=== PATIENT | female | born 1950 | race Caucasian/White ===

== ENCOUNTER 2022-09-28 22:29 | Observation (INO) | payer MEDICARE, OTHER ==
--- OUTSIDE RECORDS SUMMARY | 2022-09-28 22:32 | XMS REPORT | Continuity of Care Document ---
:1950 Author Organization [facility] t Address [address] [place] [place] [address] Care Team Providers Name Role Phone Yg Harmon MD Primary Care Physician YG HARMON Attending Clinician Unavailable Problems This patient has no known problems. Allergies, Adverse Reactions, Alerts This patient has no known allergies or adverse reactions. Social History Social Habit Start Date Stop Date Quantity Comments Source Sex Assigned At [birth year] [facility] 00:00:00 00:00:00 Smoking Status Start Date Stop Date Source Tobacco smoking consumption unknown [facility] Medications This patient has no known medications. Procedures This patient has no known procedures. Plan of Care Planned Activity Planned Date Details Comments Source Future Scheduled 2022-09-28 COLONOSCOPY SCREENING [facility] Test 22:32:45 [code = COLONOSCOPY SCREENING] Future Scheduled 2022-09-28 SHINGLES VACCINES (1 [facility] Test 22:32:45 of 2) [code = SHINGLES VACCINES (1 of 2)] Future Scheduled 2022-09-28 65+ [facility]AL [facility] Test 22:32:45 VACCINE (1 - PCV) [code = 65+ PNEUMOCOCCAL VACCINE (1 - PCV)] Future Scheduled 2022-09-28 COVID-19 VACCINE (4 - [facility] Test 22:32:45 Booster for Moderna series) [code = COVID-19 VACCINE (4 - Booster for Moderna series)] Future Scheduled 2022-09-28 INFLUENZA VACCINE [facility] Test 22:32:45 [code = INFLUENZA VACCINE] Future Scheduled 2022-09-28 Hepatitis C screening [facility] Test 22:32:45 (procedure) [code = 942541956] Future Scheduled 2022-09-28 BREAST CANCER [facility] Test 22:32:45 SCREENING [code = BREAST CANCER SCREENING] Encounters Start End Encounter Admission Attending Care Care Encounter Source Date/Time Date/Time Type Type Clinicians Facility Department ID 2021-08-02 2021-08-02 Outpatient [facility] [id number] [address] 00:00:00 00:00:00 YG [address] 2021-08-02 2021-08-02 Outpatient [facility] [id number] [address] 00:00:00 00:00:00 YG [address] Results This patient has no known results.
[2022-09-28] MEDS ORDERED: RIVAROXABAN 20 MG TABLET PO ONE (22:44)
[2022-09-28] MEDS ORDERED: NITROGLYCERIN 0.4 MG/TAB SL ONE (22:46)
[2022-09-28] MEDS ORDERED: ASPIRIN 81 MG CHEWABLE TABLET ONE (22:46)
[2022-09-28] MEDS ORDERED: NA CHLORIDE 0.9% 500 ML ONE ×2 (22:46→23:05)
[2022-09-28] MEDS ORDERED: MORPHINE 4 MG/ML SYR ONE (23:05)
[2022-09-28] MEDS ORDERED: FAMOTIDINE 20 MG/2 ML VIAL IV ONE (23:05)
[2022-09-28] MEDS ORDERED: ONDANSETRON 4 MG/2 ML VIAL ONE (23:05)
[2022-09-28 23:07] LABS: Hematocrit 40.9 % (36.0-45.0); Lymphocytes % 35.8 % (15.3-44.8); MCV 96.1 fL (80-100); MPV 8.6 fL (7.6-11.3); RBC Red Blood Cell Count 4.26 M/uL (3.86-4.86)
[2022-09-28 23:08] LABS: Protime INR 0.98
[2022-09-28 23:50] LABS: ALT/SGPT 26 U/L (13-56); AST/SGOT 14 U/L (15-37); Albumin 3.4 g/dL (3.4-5.0); Alkaline Phosphatase 81 U/L (45-117); BUN Blood Urea Nitrogen 23 mg/dL (7-18); Bicarbonate 28 mmol/L (21-32); Bilirubin Total 0.3 mg/dL (0.2-1.0); Glomerular Filtration Rate 83 ml/min (=/>90); Glucose Level 124 mg/dL (74-106); Lipase 14453 U/L (73-393); Magnesium 2.4 mg/dL (1.6-2.4); NT PRO-BNP 27 pg/mL (<125); Potassium 3.6 mmol/L (3.5-5.1); Protein, Total 7.1 g/dL (6.4-8.2); Sodium Level 144 mmol/L (136-145); Troponin High Sensitivity 4.3 pg/mL (<58.9)
[2022-09-28 23:51] LABS: Bilirubin Direct < 0.1 mg/dL (0-0.2)
[2022-09-28 23:53] LABS: SARS-CoV-2 Antigen Rapid Res Negative (Negative)
[2022-09-29] MEDS ORDERED: NA CHLORIDE 0.9% 1,000 ML ONE (01:13)
--- NOTE | 2022-09-29 01:50 | EDPHYS ---
Physician Documentation [facility] Name: Cinthia Grant Age: 72 yrs Sex: Female : 1950 Arrival Date: 09/28/2022 Time: 22:30 Bed 7 Private MD: ED Physician Abraham Jade HPI: 09/28 22:40 This 72 yrs old Female presents to ER via Wheelchair with complaints of Chest Pain. cp 22:40 The patient or guardian reports chest pain that is located primarily in the anterior cp chest wall, left. 22:40 Onset: suddenly, today. Associated signs and symptoms: Pertinent positives: nausea, mid cp back pain, Pertinent negatives: cough, palpitations, syncope, vomiting. The chest pain is described as constant. Duration: The patient or guardian reports a single episode, that is still ongoing, and worsening. Historical: - Allergies: 22:58 No Known Allergies; aa9 - PMHx: 22:58 Hypertensive disorder; Hypercholesterolemia; aa9 - PSHx: 22:58 femur sx; aa9 - Immunization history:: Client reports receiving the 2nd dose of the Covid vaccine. - Social history:: Smoking status: Patient denies any tobacco usage or history of. ROS: 22:45 Constitutional: Negative for body aches, chills, fever, poor PO intake. cp 22:45 Eyes: Negative for injury, pain, redness, and discharge. cp 22:45 Neck: Negative for pain with movement, pain at rest, stiffness. 22:45 Cardiovascular: Positive for radiating pain to below left breast, Negative for edema, palpitations. 22:45 Respiratory: Negative for cough, shortness of breath, wheezing. 22:45 Abdomen/GI: Negative for vomiting, diarrhea, constipation. 22:45 Back: Positive for pain at rest, of the mid back. 22:45 Neuro: Negative for altered mental status, dizziness, headache, syncope, weakness. 22:45 All other systems are negative. cp Exam: 22:42 ECG was reviewed by the Attending Physician. cp 22:50 Constitutional: The patient appears alert, awake, non-diaphoretic, non-toxic, well cp developed, well nourished, in obvious pain, uncomfortable. 22:50 Head/Face: Normocephalic, atraumatic. cp 22:50 Eyes: Periorbital structures: appear normal, Conjunctiva: normal, no exudate, no injection, Sclera: no appreciated abnormality, Lids and lashes: appear normal, bilaterally. 22:50 ENT: External ear(s): are unremarkable, Nose: is normal, Mouth: Lips: moist, Oral mucosa: pink and intact, moist, Posterior pharynx: Airway: no evidence of obstruction, patent. 22:50 Neck: ROM/movement: is normal, is supple, without pain, no range of motions limitations, no meningismus. 22:50 Chest/axilla: Inspection: normal. 22:50 Cardiovascular: Rate: normal, Rhythm: regular, Edema: is not appreciated, JVD: is not appreciated. 22:50 Respiratory: the patient does not display signs of respiratory distress, Respirations: labored breathing, is not present, shallow respirations, that is mild, Breath sounds: are clear throughout, no decreased breath sounds, no stridor, no wheezing. 22:50 Abdomen/GI: Inspection: obese Bowel sounds: active, all quadrants, Palpation: soft, in all quadrants, mild abdominal tenderness, in the epigastric area. 22:50 Back: pain, that is severe, of the mid back area, ROM is painful, with all movement. 22:50 Skin: no rash present. 22:50 Neuro: Orientation: to person, place \T\ time. Mentation: is normal, Motor: moves all fours, strength is normal, Sensation: is normal. Vital Signs: 22:56 BP 138 / 101; Pulse 67; Resp 18 S; Temp 97(O); Pulse Ox 95% on R/A; Weight 77.11 kg aa9 (R); Height 5 ft. 2 in. (157.48 cm) (R); Pain 10/10; 23:45 BP 136 / 75; Pulse 87; Resp 19 S; Pulse Ox 95% on R/A; aa9 /16 01:16 BP 129 / 61; Pulse 106; Resp 19 S; Pulse Ox 94% on R/A; aa9 05:46 BP 147 / 83; Pulse 104; Resp 16; Pulse Ox 95% on R/A; kl 07:59 BP 131 / 76; Pulse 96; Resp 18; Pulse Ox 96% on R/A; ld1 09:58 BP 136 / 82; Pulse 95; Resp 18; Pulse Ox 99% on R/A; Pain 2/10; ld1 09/28 22:56 Body Mass Index 31.09 (77.11 kg, 157.48 cm) aa9 MDM: 09/28 22:36 Patient medically screened. cp 23:00 Differential diagnosis: acute myocardial infarction, acute pericarditis, anxiety, cp cholecystitis, Cholelithiasis costochondritis, esophagitis, gastritis, pancreatitis, pericarditis, pneumonia, pneumothorax, pulmonary embolus, stable angina, thoracic aortic disection, unstable angina. 09/29 02:15 Data reviewed: vital signs. ED course: Dr. Gtz indicated based on preliminary data, kdr patient could stay. Dr. Brown wanted MRCP before accepting patient. Will get MRCP at 7:00 then dispo. 09:13 Consideration of Admission/Observation Patient was admitted/placed on observation. rt Management of patient was discussed with the following: Primary Care Provider: Faustino, will admit pt. I considered the following discharge prescriptions or medication management in the emergency department Medications were administered in the Emergency Department. See MAR. Response to treatment: the patient's symptoms have markedly improved after treatment. 09/28 22:35 Order name: Basic Metabolic Panel; Complete Time: 00:04 cp 09/29 00:04 Interpretation: Normal except: CL 109; GLUC 124; BUN 23; GFR 83. cp 09/28 22:35 Order name: CBC with Diff; Complete Time: 23:37 cp 09/29 00:06 Interpretation: Reviewed. 09/28 22:35 Order name: LFT's; Complete Time: 00:04 cp 09/29 00:05 Interpretation: Normal except: AST 14; GLOB 3.7; A/G 0.9. cp 09/28 22:35 Order name: Magnesium; Complete Time: 00:04 cp 09/28 22:35 Order name: NT PRO-BNP; Complete Time: 00:04 cp 09/28 22:35 Order name: PT-INR; Complete Time: 23:37 cp 09/28 22:35 Order name: Troponin HS; Complete Time: 00:04 cp 09/28 22:35 Order name: Lipase; Complete Time: 00:04 cp 09/29 00:04 Interpretation: Abnormal: LIP [id number]. cp 09/28 22:36 Order name: SARS RAPID; Complete Time: 00:04 cp 09/29 00:05 Order name: Lactate w/ 2H reflex if indic. cp 09/29 00:05 Order name: Blood Culture Adult (2) cp 09/29 00:07 Order name: ETOH Level; Complete Time: 01:41 cp 09/29 00:07 Order name: Urine Microscopic Only cp 09/29 02:33 Order name: Urine Dipstick-Ancillary; Complete Time: 07:14 EDMS 09/28 22:35 Order name: XRAY Chest (1 view); Complete Time: 05:18 cp 09/28 23:25 Order name: US Abdomen Limited: gallbladder; Complete Time: 05:18 cp 09/28 23:50 Order name: CT Aorta for Dissection cp 09/28 23:54 Order name: Angio Aorta For Dissection; Complete Time: 05:18 EDMS 09/29 01:58 Order name: Cholangiogram; Complete Time: 09:08 EDMS 09/28 22:35 Order name: EKG; Complete Time: 22:36 cp 09/28 22:35 Order name: Cardiac monitoring; Complete Time: 22:51 cp 09/28 22:35 Order name: EKG - Nurse/Tech; Complete Time: 22:51 cp 09/28 22:35 Order name: IV Saline Lock; Complete Time: 22:51 cp 09/28 22:35 Order name: Labs collected and sent; Complete Time: 22:51 cp 09/28 22:35 Order name: O2 Per Protocol; Complete Time: 22:51 cp 09/28 22:35 Order name: O2 Sat Monitoring; Complete Time: 22:51 cp 09/29 00:07 Order name: Urine Dipstick-Ancillary (obtain specimen); Complete Time: 05:40 cp EC/15 22:42 Rate is 75 beats/min. Rhythm is regular. MN interval is normal. QRS interval is normal. cp QT interval is normal. T waves are Inverted in lead aVR. Interpreted by me. Reviewed by me. Administered Medications: 22:45 Drug: Nitroglycerin 0.4 mg Route: Sublingual; aa9 22:50 Drug: Aspirin Chewable Tablet 324 mg Route: PO; aa9 22:51 Drug: NS 0.9% 500 ml Route: IV; Rate: 250 ml/hr; Site: left forearm; aa9 09/29 00:37 Follow up: Response: No adverse reaction; IV Status: Completed infusion; IV Intake: aa9 500ml 09/28 22:55 Drug: Nitroglycerin 0.4 mg Route: Sublingual; aa9 23:00 Drug: Pepcid (famotidine) 20 mg Route: IVP; Site: left forearm; kl 23:18 Follow up: Response: No adverse reaction kl 23:04 Drug: Zofran (Ondansetron) 4 mg Route: IVP; Site: left forearm; kl 23:18 Follow up: Response: No adverse reaction; Marked relief of symptoms kl 23:09 Drug: morphine 4 mg Route: IVP; Infused Over: 4 mins; Site: left forearm; kl 23:18 Follow up: Response: Adverse reaction, Physician notified; Marked relief of symptoms kl 09/29 01:15 Drug: NS 0.9% 1000 ml Route: IV; Rate: 100 ml/hr; Site: left forearm; aa9 05:22 Drug: morphine 4 mg Route: IVP; Infused Over: 4 mins; Site: right forearm; aa9 05:22 Drug: Zofran (Ondansetron) 4 mg Route: IVP; Site: left forearm; aa9 05:23 Not Given (Duplicate Order): morphine 4 mg IVP once over 4 mins aa9 05:23 Not Given (Duplicate Order): Zofran (Ondansetron) 4 mg IVP once; over 2 minutes aa9 07:59 Drug: Ativan (LORazepam) 1 mg Route: IVP; Site: left wrist; ld1 08:30 Follow up: Response: No adverse reaction; Anxiety decreased ld1 Disposition: 02:00 Co-signature as Attending Physician, Sammy Chong MD I agree with the assessment and kdr plan of care. Disposition Summary: 09/29/22 09:10 Hospitalization Ordered Hospitalization Status: Inpatient Admission(09/29/22 09:10) rt Provider: Yg Harmon(09/29/22 09:10) rt [facility]09[facility] 09:10) rt Condition: Fair(09/29/22 09:10) rt Problem: new(09/29/22 09:10) rt Symptoms: have improved(09/29/22 09:10) rt Bed/Room Type: Standard(09/29/22 09:10) rt Room Assignment: 430(09/29/22 09:23) dw Diagnosis - Acute Pancreatitis rt Forms: - Medication Reconciliation Form rt - SBAR form rt Signatures: Dispatcher [employer] EDKassy Lopez, RN Kym Austin RN RN dw Rittger, Kevin, MD MD kdr Filipe Dougherty PA PA cp Dibbern, Lauren, RN RN ld1 Bebe Sommers RN RN aa9 Brown, Sophia, PA-C PA-Doe sb4 Abraham Jade MD MD rt Corrections: (The following items were deleted from the chart) 02:14 01:50 Inpatient Admission kdr kdr 02:14 01:50 Yg Harmon kdr kdr 02:14 01:50 Telemetry/MedSurg (Inpatient) kdr kdr 02:14 01:50 Fair kdr kdr 02:14 01:50 new kdr kdr 02:14 01:50 have improved kdr kdr 02:14 01:50 Standard kdr kdr 02:14 01:50 kdr kdr 02:14 01:50 Upper abdominal pain, unspecified kdr kdr 02:14 01:50 Other chronic pancreatitis kdr kdr 09: 09:10 rt dw
--- NOTE | 2022-09-29 01:50 | ER ---
Nurse's Notes [facility] Name: Cinthia Grant Age: 72 yrs Sex: Female : 1950 Arrival Date: 09/28/2022 Time: 22:30 Bed 7 Private MD: Diagnosis: Acute Pancreatitis Presentation: 09/28 22:56 Chief complaint: Patient states: I was sitting on the couch, then I had a sudden chest aa9 pain like pressure started about an hour ago. Coronavirus screen: Vaccine status: Patient reports receiving the 2nd dose of the covid vaccine. Ebola Screen: No symptoms or risks identified at this time. Initial Sepsis Screen: Does the patient meet any 2 criteria? Yes Does the patient have a suspected source of infection? No. Patient's initial sepsis screen is negative. Risk Assessment: Do you want to hurt yourself or someone else? Patient reports no desire to harm self or others. Onset of symptoms was September 28, 2022 at 22:58. 22:56 Method Of Arrival: Wheelchair aa9 22:56 Acuity: SALONI 3 aa9 Triage Assessment: 22:59 General: Appears uncomfortable, obese, Behavior is cooperative, anxious. Pain: aa9 Complains of pain in chest Pain currently is 10 out of 10 on a pain scale. Quality of pain is described as pressure, Noted to be crying, moaning, restless. Neuro: Level of Consciousness is awake, alert, obeys commands, Oriented to person, place, time, situation. Cardiovascular: Patient's skin is warm and dry. Rhythm is regular. Respiratory: Airway is patent Respiratory effort is even, unlabored. GI: Abdomen is obese. : No signs and/or symptoms were reported regarding the genitourinary system. Derm: Skin is intact, with poor turgor. Musculoskeletal: No signs and/or symptoms reported regarding the musculoskeletal system. Historical: - Allergies: 22:58 No Known Allergies; aa9 - PMHx: 22:58 Hypertensive disorder; Hypercholesterolemia; aa9 - PSHx: 22:58 femur sx; aa9 - Immunization history:: Client reports receiving the 2nd dose of the Covid vaccine. - Social history:: Smoking status: Patient denies any tobacco usage or history of. Screenin:00 [facility] ED Fall Risk Assessment (Adult) History of falling in the last 3 months, aa9 including since admission No falls in past 3 months (0 pts) Confusion or Disorientation No (0 pts) Intoxicated or Sedated No (0 pts) Impaired Gait No (0 pts) Mobility Assist Device Used No (0 pt) Altered Elimination No (0 pt) Score/Fall Risk Level 0 - 2 = Low Risk. Abuse screen: Denies threats or abuse. Denies injuries from another. Nutritional screening: No deficits noted. Tuberculosis screening: No symptoms or risk factors identified. Assessment: 23:02 Reassessment: Pt c/o pain after nitro sublingual administration, Ladonna MCINTOSH notified. aa9 23:02 GI: Pt is actively vomiting. aa9 09/29 01:16 Reassessment: Patient appears in no apparent distress at this time. Patient and/or aa9 family updated on plan of care and expected duration. Pain level reassessed. Patient is alert, oriented x 3, equal unlabored respirations, skin warm/dry/pink. Pain: Denies pain. 02:00 Reassessment: Patient appears in no apparent distress at this time. Patient and/or kl family updated on plan of care and expected duration. Pain level reassessed. 05:00 Pain: Complains of pain in diaphragm Pain currently is 4 out of 10 on a pain scale. aa9 Quality of pain is described as burning, Pain began gradually. 05:00 Reassessment: notified Dr Chong. aa9 05:00 Pain: Pain radiates to left subscapular area. aa9 05:47 Reassessment: Patient appears in no apparent distress at this time. Patient and/or aa9 family updated on plan of care and expected duration. Pain level reassessed. Patient is alert, oriented x 3, equal unlabored respirations, skin warm/dry/pink. 08:00 Reassessment: Pt reporting anxiety/claustrophobia for imaging. Notified ERP - See NOV ld1 for order.s. 09:58 Reassessment: Patient appears in no apparent distress at this time. Patient and/or ld1 family updated on plan of care and expected duration. Pain level reassessed. Patient is alert, oriented x 3, equal unlabored respirations, skin warm/dry/pink. Vital Signs: 09/28 22:56 BP 138 / 101; Pulse 67; Resp 18 S; Temp 97(O); Pulse Ox 95% on R/A; Weight 77.11 kg aa9 (R); Height 5 ft. 2 in. (157.48 cm) (R); Pain 10/10; 23:45 BP 136 / 75; Pulse 87; Resp 19 S; Pulse Ox 95% on R/A; aa9 09/29 01:16 BP 129 / 61; Pulse 106; Resp 19 S; Pulse Ox 94% on R/A; aa9 05:46 BP 147 / 83; Pulse 104; Resp 16; Pulse Ox 95% on R/A; kl 07:59 BP 131 / 76; Pulse 96; Resp 18; Pulse Ox 96% on R/A; ld1 09:58 BP 136 / 82; Pulse 95; Resp 18; Pulse Ox 99% on R/A; Pain 2/10; ld1 09/28 22:56 Body Mass Index 31.09 (77.11 kg, 157.48 cm) aa9 ED Course: 09/28 22:30 Patient arrived in ED. ag3 22:34 Filipe Dougherty PA is PHCP. cp 22:34 Sammy Chong MD is Attending Physician. cp 22:55 XRAY Chest (1 view) In Process Unspecified. EDMS 22:58 Triage completed. aa9 23:01 Patient has correct armband on for positive identification. Placed in gown. Bed in low aa9 position. Call light in reach. Side rails up X2. Adult w/ patient. Client placed on continuous cardiac and pulse oximetry monitoring. NIBP monitoring applied. 23:18 SARS RAPID Sent. kl 23:51 Warm blanket given. aa9 09/29 00:01 US Abdomen Limited: gallbladder In Process Unspecified. EDMS 00:37 ETOH Level Sent. aa9 00:40 Angio Aorta For Dissection In Process Unspecified. EDMS 01:49 Yg Harmon MD is Hospitalizing Provider. kdr 03:00 No apparent distress. Resting quietly. Appears to be sleeping. kl 04:32 No apparent distress. Resting quietly. Appears to be sleeping. kl 06:04 Arm band placed on. aa9 06:04 No provider procedures requiring assistance completed. Patient maintains SpO2 aa9 saturation greater than 95% on room air. 07:05 Attending Physician role handed off by Sammy Chong MD rt 07:05 Abraham Jade MD is Attending Physician. rt 08:39 Cholangiogram In Process Unspecified. EDMS 09:09 Yg Harmon MD is Hospitalizing Provider. rt 09:58 Patient admitted, IV remains in place. ld1 Administered Medications: 09/28 22:45 Drug: Nitroglycerin 0.4 mg Route: Sublingual; aa9 22:50 Drug: Aspirin Chewable Tablet 324 mg Route: PO; aa9 22:51 Drug: NS 0.9% 500 ml Route: IV; Rate: 250 ml/hr; Site: left forearm; aa9 09/29 00:37 Follow up: Response: No adverse reaction; IV Status: Completed infusion; IV Intake: aa9 500ml 09/28 22:55 Drug: Nitroglycerin 0.4 mg Route: Sublingual; aa9 23:00 Drug: Pepcid (famotidine) 20 mg Route: IVP; Site: left forearm; kl 23:18 Follow up: Response: No adverse reaction kl 23:04 Drug: Zofran (Ondansetron) 4 mg Route: IVP; Site: left forearm; kl 23:18 Follow up: Response: No adverse reaction; Marked relief of symptoms kl 23:09 Drug: morphine 4 mg Route: IVP; Infused Over: 4 mins; Site: left forearm; kl 23:18 Follow up: Response: Adverse reaction, Physician notified; Marked relief of symptoms kl 09/29 01:15 Drug: NS 0.9% 1000 ml Route: IV; Rate: 100 ml/hr; Site: left forearm; aa9 05:22 Drug: morphine 4 mg Route: IVP; Infused Over: 4 mins; Site: right forearm; aa9 05:22 Drug: Zofran (Ondansetron) 4 mg Route: IVP; Site: left forearm; aa9 05:23 Not Given (Duplicate Order): morphine 4 mg IVP once over 4 mins aa9 05:23 Not Given (Duplicate Order): Zofran (Ondansetron) 4 mg IVP once; over 2 minutes aa9 07:59 Drug: Ativan (LORazepam) 1 mg Route: IVP; Site: left wrist; ld1 08:30 Follow up: Response: No adverse reaction; Anxiety decreased ld1 Medication: 06:03 VIS not applicable for this client. aa9 Intake: 00:37 IV: 500ml; Total: 500ml. aa9 Outcome: 01:50 Decision to Hospitalize by Provider. kdr 09:10 Decision to Hospitalize by Provider. rt 09:57 Admitted to Med/surg accompanied by tech, via wheelchair, room 430, with chart, Report ld1 called to DILSHAD Ribeiro 09:57 Condition: stable 09:57 Instructed on the need for admit. 10:26 Patient left the ED. vg1 Signatures: Dispatcher [employer] EDKassy Lopez RN Sammy Gorman MD MD kdr Filipe Dougherty PA PA Kirsten Arshad ag3 Adia Zhou RN RN vg1 Nan Gurrola RN RN ld1 Bebe Sommers RN RN aa9 Abraham Jade MD MD rt Corrections: (The following items were deleted from the chart) 06:04 06:04 Pain: Pain radiates to left subscapular area aa9 aa9
[2022-09-29 02:33] LABS: Urine Blood Negative (Negative); Urine Glucose Negative (Negative); Urine Protein Negative (Negative); Urine pH 5.5 (5.0-7.0)
[2022-09-29] MEDS ORDERED: ONDANSETRON 4 MG/2 ML VIAL ONE (05:16)
[2022-09-29] MEDS ORDERED: MORPHINE 4 MG/ML SYR ONE (05:16)
[2022-09-29] MEDS ORDERED: LORazepam 2 MG/ML VIAL ONE (08:00)
--- NOTE | 2022-09-29 09:03 | RAD REPORT ---
EXAM DESCRIPTION: MRI - Cholangiogram - 09/29/2022 8:41 am CLINICAL HISTORY: pancreatitis COMPARISON: Angio Aorta For Dissection dated 09/29/2022 FINDINGS: Three-dimensional MRCP was performed using maximum intensity projection reconstruction on the same work station. No intrahepatic biliary tree dilatation is seen. The common bile duct is normal caliber without evide nce of retained stone, stricture or mass. The pancreatic duct is not pathologically dilated. The gallbladder is unremarkable. Fluid present at the tail the pancreas, around the spleen, extending into the retroperitoneum. No flu id collection identified. Probable renal sinus cysts. Intensely T2 hyperintense lesion in the hepatic dome measuring 7 millimeters and a second lesion that is essentially punctate noted which are almost certainly benign. No suspicious liver lesions identified. Likely dependent atelectasis. IMPRESSION: Inflammatory changes at the tail of the pancreas likely reflecting acute pancreatitis. N o pancreatic ductal dilatation. Negative for biliary ductal dilatation or choledocholithiasis.
[2022-09-29 10:37] VITALS: O2SAT 99
[2022-09-29 11:06] VITALS: BMI 31.1
[2022-09-29] MEDS ORDERED: SODIUM CHLORIDE 0.9% 10ML INJ IV PRN (11:47)
[2022-09-29] MEDS ORDERED: HYDROMORPHONE HCL 1 MG/ML INJ IV PRN (11:48)
[2022-09-29] MEDS ORDERED: ONDANSETRON 4 MG/2 ML VIAL IV PRN (11:49)
[2022-09-29] MEDS: Ringers Lactate 1,000 ML IV SCH ×3 (12:00→23:20)
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
--- NOTE | 2022-09-29 13:26 | RAD REPORT ---
EXAM DESCRIPTION: RAD - Chest Single View - 09/28/2022 10:53 pm CLINICAL HISTORY: The patient is 72 years old and is Female; CHEST PAIN TECHNIQUE: Frontal view of the chest. COMPARISON: No relevant prior studies available. FINDINGS: LUNGS: Unremarkable. No consolidation. PLEURAL SPACE: Unremarkable. No pneumothorax. HEART: Unremarkable. No cardiomegaly. MEDIASTINUM: Unremarkable. BONES/JOINTS: Mild degenerative change of the bones is noted. UPPER ABDOMEN: Unremarkable as visualized. IMPRESSION: No acute cardiopulmonary process. Electronically signed by: Carolyn Fitch MD 09/28/2022 11:46 PM TOOL AND PRODUCTION PLANNER Due to temporary technical issues with the PACS/Fluency reporting system, reports are being signed by the in house radiologists without review as a courtesy to insure prompt reporting. The interpreting radiologist is fully responsible for the content of the report.
--- NOTE | 2022-09-29 13:46 | RAD REPORT ---
EXAM DESCRIPTION: US - Abdomen Exam Limited - 09/28/2022 11:59 pm CLINICAL HISTORY: Back pain TECHNIQUE: Real-time ultrasound of the right upper quadrant with image documentation. COMPARISON: No relevant prior studies available. FINDINGS: Gallbladder: Tiny gallstones and/or layering sludge. No gallbladder wall thickening or pericholecystic fluid. Common bile duct: Unremarkable as visualized. No stones. No dilation. IMPRESSION: Cholelithiasis and/or sludge. No secondary signs to suggest acute cholecystitis. Electronically signed by: Jah Harper MD 09/29/2022 12:14 AM GROUP SALES REPRESENTATIVE Due to temporary technical issues with the PACS/Fluency reporting system, reports are being signed by the in house radiologists without review as a courtesy to insure prompt reporting. The interpreting radiologist is fully responsible for the content of the report.
--- NOTE | 2022-09-29 14:16 | RAD REPORT ---
EXAM DESCRIPTION: CT - Angio Aorta For Dissection - 09/29/2022 7:00 am CLINICAL HISTORY: The patient is 72 years old and is Female; chest pain, back pain TECHNIQUE: Axial computed tomographic angiography images of the chest, abdomen and pelvis with intra venous contrast. Sagittal and coronal reformatted images were created and reviewed. This CT exam was performed using one or more of the following dose reduction techniques: automated exposure cont rol, adjustment of the mA and/or kV according to patient size, and/or use of iterative reconstruction technique. MIP reconstructed images were created and reviewed. COMPARISON: No relevant prior studies available. FINDINGS: VASCULATURE: Aorta: Scattered atherosclerotic vascular calcifications. No aortic aneurysm. No dissection. Pulmonary arteries: Unremarkable as visualized. No pulmonary embolism is identified. Great vessels of aortic arch: No acute findings. No dissection. No arterial occlusion or sig nificant stenosis. Celiac trunk and mesenteric arteries: No acute findings. No occlusion or significant stenosis. Renal arteries: No acute findings. No occlusion or significant stenosis. Iliac arteries: No acute findings. No occlusion or significant stenosis. CHEST: Lungs: Unremarkable. No mass. No consolidation. Pleural space: Unremarkable. No significant effusion. No pneumothorax. Heart: Unremarkable. No cardiomegaly. No significant pericardial effusion. ABDOMEN: Liver: There are a few subcentimeter low-density lesions in the liver which are too small to ful ly characterize but may represent cysts. Gallbladder and bile ducts: Unremarkable. No calcified stones. No ductal dilation. Pancreas: Fat stranding around the pancreatic body/tail suggestive of acute pancreatitis. No ductal dilation. Spleen: Unremarkable. No splenomegaly. Adrenals: Unremarkable. No mass. Kidneys and ureters: Suggestion of some simple renal sinus cysts bilaterally. ACR White Paper gu idelines (Silvia, et al. JACR 2018; 15(2):264-273) suggest no follow-up is necessary. No hydronephrosis. No solid mass. Stomach and bowel: Unremarkable. No obstruction. No mucosal thickening. PELVIS: Appendix: No findings to suggest acute appendicitis. Bladder: Unremarkable. No mass. Reproductive: Unremarkable as visualized. CHEST, ABDOMEN and PELVIS: Intraperitoneal space: Unremarkable. No significant fluid collection. No free air. Bones/joints: Partially visualized intramedullary tierra in the left femur. No acute fracture. No dislocation. Soft tissues: Unremarkable. Lymph nodes: Unremarkable. No enlarged lymph nodes. Other findings: Disc space narrowing with degenerative endplate changes in the spine. IMPRESSION: Fat stranding around the pancreatic body/tail suggestive of acute pancreatitis. Electronically signed by: Patrick Nunez MD 09/29/2022 1:16 AM CUSTOMER SERVICE SPECIALIST Due to temporary technical issues with the PACS/Fluency reporting system, reports are being signed by the in house radiologists without review as a courtesy to insure prompt reporting. The interpreting radiologist is fully responsible for the content of the report.
--- NOTE | 2022-09-29 17:32 | EKG ---
Test Date: 2022-09-28 Test Time: 22:33:44 Planer Setup Operator: JOAQUINA MEASUREMENT RESULTS: Intervals: Rate: 75 GA: 162 QRSD: 76 QT: 410 QTc: 457 [place]: P: 13 GA: 162 QRS: 22 T: 42 INTERPRETIVE STATEMENTS: Normal sinus rhythm Normal ECG Compared to ECG 08/01/1997 16:52:00 No significant changes Electronically Signed On 09-29-22 17:30:45 BRAND ANALYST by Danyel Chen
[2022-09-30] MEDS: Ringers Lactate 1,000 ML IV SCH (04:00)
[2022-09-30 05:25] LABS: Hematocrit 34.7 % (36.0-45.0); Lymphocytes % 13.1 % (15.3-44.8); MCV 95.1 fL (80-100); MPV 8.6 fL (7.6-11.3); RBC Red Blood Cell Count 3.65 M/uL (3.86-4.86)
[2022-09-30 05:45] LABS: Albumin 2.9 g/dL (3.4-5.0); Bilirubin Direct 0.2 mg/dL (0-0.2); Bilirubin Total 0.7 mg/dL (0.2-1.0); Potassium 3.8 mmol/L (3.5-5.1); Protein, Total 6.2 g/dL (6.4-8.2)
[2022-09-30] MEDS ORDERED: ENOXAPARIN 40 MG/0.4 ML SQ SCH (09:00)
[2022-09-30] MEDS ORDERED: PANTOPRAZOLE 40 MG INJ IVP SCH (09:00)
[2022-09-30 09:04] VITALS: BP 147/83; TEMP 98.3
--- NOTE | 2022-09-30 22:04 | P.DS ---
Admission Date: 09/29/22 Discharge Date: 09/30/22 Disposition: DC HOME/HOME HEALTH CARE Discharge Condition: FAIR Reason for Admission: BACK PAIN AND UPPER ABDOMEN PAIN. - Problems (1) Acute pancreatitis Status: Acute (2) Acute pancreatitis Status: Acute Brief History of Present Illness: JUAN HAS BACK PAIN AND THEN LATER STARTED TO HAVE UPPER ABDOMEN PAIN. SHE COMES TO ER, THEY RULED OUT DISSECTION AND CONFIRMED PANCREATITIS. SHE NEVER HAD THIS BEFORE. SHE IS STABLE AND PAINFREE WITH MORPHINE. Hospital Course: SHE HAD ACUTE PANCREATITIS AND HAS IMPROVED WELL. SHE MAY NEED CHOLECYSTECTOMY WILL FU WITH DR. CHAPMAN. HER PANCREATITS WAS IN TAIL OF PANCREASE SO I AM NOT SURE IF GB HAD ANYTHING TO DO IWTH IT. Vital Signs/Physical Exam: Temp Pulse Resp BP Pulse Ox 98.3 F 97 H 16 147/83 H 95 09/30/22 08:00 09/30/22 08:00 09/30/22 08:00 09/30/22 08:00 09/30/22 08:00 Laboratory Data at Discharge: WBC 7.70 K/uL (4.3-10.9) 09/30/22 04:39 Hgb 11.8 g/dL (12.0-15.0) L 09/30/22 04:39 Hct 34.7 % (36.0-45.0) L 09/30/22 04:39 Plt Count 257 K/uL (152-406) 09/30/22 04:39 PT 10.8 SECONDS (9.5-12.5) 09/28/22 22:49 INR 0.98 09/28/22 22:49 Sodium 139 mmol/L (136-145) 09/30/22 04:39 Potassium 3.8 mmol/L (3.5-5.1) 09/30/22 04:39 BUN 9 mg/dL (7-18) 09/30/22 04:39 Creatinine 0.43 mg/dL (0.55-1.02) L 09/30/22 04:39 Glucose 104 mg/dL (74-106) 09/30/22 04:39 Magnesium 2.0 mg/dL (1.6-2.4) 09/30/22 04:39 Total Bilirubin 0.7 mg/dL (0.2-1.0) 09/30/22 04:39 AST 9 U/L (15-37) L 09/30/22 04:39 ALT 20 U/L (13-56) 09/30/22 04:39 Alkaline Phosphatase 71 U/L (45-117) 09/30/22 04:39 Triglycerides 106 mg/dL (<150) 09/30/22 04:39 Cholesterol 128 mg/dL (<200) 09/30/22 04:39 HDL Cholesterol 52 mg/dL (40-60) 09/30/22 04:39 Cholesterol/HDL Ratio 2.46 09/30/22 04:39 Lipase 409 U/L (73-393) H 09/30/22 04:39 Home Medications: Olmesartan Medoxomil [Benicar] 20 mg PO BEDTIME 09/29/22 Simvastatin 40 mg PO DAILY 09/29/22 Followup: Yg Harmon MD [Primary Care Provider] - (call for an apointment when you get home for Thursday )
== END 2022-09-30 11:53 | disposition home health service (06) ==
LOC: ER 22:29 → INTOOBSV 09-29 09:12 → ERHOLD 09-29 09:12 → 4TH 09-29 10:00
PROVIDERS: ADMIT Internal Medicine; ATTEND Internal Medicine
DX: K85.90 Acute pancreatitis without necrosis or infection, unspecified (principal); I10 Essential (primary) hypertension; E78.00 Pure hypercholesterolemia, unspecified; Z20.822 Contact with and (suspected) exposure to COVID-19
CPT/HCPCS: 93005; 85025 ×2; 80048 ×2; 36415 ×2; 83735 ×2; 85610; 80061; 80076 ×2; 81003; 84484; 83690 ×2; 83880; 71275; 74175; 71045; 74181; 76705; 87811; Q9967; C9113; J1170; J7120 ×3; J7040 ×2; J7030; J2405 ×2; G0480; 99285; G0378; J1650

== ENCOUNTER 2022-10-24 06:58 | Day surgery (SDC) | payer MEDICARE, OTHER ==
[2022-10-24] MEDS ORDERED: Ringers Lactate 1,000 ML IV ONE (07:18)
[2022-10-24] MEDS ORDERED: CEFOXITIN SODIUM 2 GM/VIAL ONE (07:18)
[2022-10-24] MEDS ORDERED: FENTANYL CITR 100 MCG/2 ML ONE ×2 (07:40→09:24)
[2022-10-24] MEDS ORDERED: ROCURONIUM 50 MG/5 ML VIAL IV ONE (07:40)
[2022-10-24] MEDS ORDERED: LIDOCAINE 2% MPF 5 ML VIAL ONE (07:40)
[2022-10-24] MEDS ORDERED: propofoL 200 MG/20 ML VIAL IV ONE (07:40)
[2022-10-24] MEDS ORDERED: ACETAMINOPHEN 500 MG TAB ONE (08:06)
[2022-10-24] MEDS ORDERED: CELECOXIB 100 MG CAPSULE ONE (08:06)
[2022-10-24] MEDS ORDERED: NS 0.9% VIAL 10 ML ONE (09:21)
[2022-10-24] MEDS ORDERED: dexAMETHasone 10 MG/ML VIAL ONE (09:25)
[2022-10-24] MEDS ORDERED: KETOROLAC 30 MG/ML INJ ONE (09:25)
[2022-10-24] MEDS ORDERED: ONDANSETRON 4 MG/2 ML VIAL ONE ×2 (09:53→10:30)
[2022-10-24] MEDS ORDERED: GLYCOPYRROLATE 0.2 MG/ML SYR ONE (09:57)
--- NOTE | 2022-10-24 09:58 | P.OP ---
Preoperative diagnosis: Gallstone Pancreatitis Postoperative diagnosis: Gallstone Pancreatitis Primary procedure: Laparoscopic Cholecystectomy with ICG Anesthesia: GETA + Local Estimated blood loss: <5cc Specimen: Gallbladder Findings: distended GB Complications: None Transferred to: Recovery Room Condition: Good
[2022-10-24] MEDS ORDERED: NEOSTIGMINE 1 MG/ML -5 ML ONE (09:59)
[2022-10-24] MEDS ORDERED: PROMETHAZINE INJ 25 MG/ML AMP ONE (10:20)
[2022-10-24] MEDS: HYDROMORPHONE HCL 1 MG/ML INJ ONE ×2 (10:41→10:49)
[2022-10-24 14:32] VITALS: BP 147/61; TEMP 96.7; O2SAT 97
--- NOTE | 2022-10-24 20:20 | OP ---
Date of Procedure: 10/24/2022 Surgeon: David Gtz MD, Preoperative Diagnosis: Gallstone pancreatitis. Postoperative Diagnosis: Gallstone pancreatitis. Procedure Performed: Laparoscopic cholecystectomy with indocyanine green cholangiography. Anesthesia: General endotracheal plus local with 0.5% Marcaine without epinephrine Estimated Blood Loss: 5 cc. Specimen: Gallbladder. Findings: Distended gallbladder. Complications: None. Disposition: Patient transferred to recovery room in good condition. Procedure In Detail: After informed consent was obtained, patient was brought to the operating room and prepped and draped in the usual sterile fashion after adequate anesthesia was achieved. I anesth etized the supraumbilical position down to subcutaneous tissues. I then made an incision and inserte d a 5 mm trocar under direct visualization without evidence of complication. Insufflation was obtain ed to 15 mmHg at this time. There was no injury to vital structures upon entry of the abdomen. Two additional trocars were placed, one in the epigastrium and one in the right upper quadrant. Both of these were 5 mm trocars placed under direct visualization without evidence of complication. The umbi lical trocar site was then upsized to a 12 mm under direct visualization without evidence of complica tion. The patient was positioned head up right-side up position. Ratcheted grasper was used to gras p the patient's gallbladder, which was quite distended, requiring some decompression. At this point, a dissection continued down to the Gilberto's pouch of the gallbladder. Indocyanine green cholangio graphy helped to visualize the confluence of the cystic duct, common duct junction, which was covered in adipose tissue. I was able to circumferentially dissect around the cystic duct confluence of the gallbladder. I skeletonized 2 structures entering the gallbladder. These were identified as both c ystic duct and cystic artery. These were then doubly clipped on the proximal side and singly on the distal side of both cystic duct and cystic artery. I then removed the gallbladder off the hepatic fo ssa without evidence of complication. There was minimal spillage of bile throughout the procedure. The gallbladder was then placed in EndoCatch bag, removed through the umbilical trocar site and sent off for pathologic examination. The abdomen was reinsufflated at this point. The right upper quadra nt subhepatic fossa was copiously irrigated, suctioned out completely clear. Clips were found to be in good anatomic position without any evidence of spillage of bile or blood. I sucked out the remain ing effluent. After the patient was positioned back in neutral position, the umbilical trocar site w as then closed using a Padilla-Albin suture passer with an 0 Vicryl in interrupted fashion with goo d approximation of tissues. The remaining trocars were removed under direct visualization. I then c opiously irrigated all skin incisions and they were closed with a 4-0 Monocryl in running fashion. D ermabond was placed over top. The patient tolerated the procedure without evidence of any complicati on and transferred to PACU in good condition. All counts were correct at the end of the case. JANINE/PATRICE Voice ID: [id number] Report ID: [id number]
== END 2022-10-24 12:24 | disposition home or self-care (01) ==
LOC: OR 06:58
PROVIDERS: ATTEND Surgery
PROC: BF53200 Other Imaging of Gallbladder and Bile Ducts using Fluorescing Agent, Indocyanine Green Dye, Intraoperative (ICD-10-PCS; 2022-10-24)
PROC: 0FT44ZZ Resection of Gallbladder, Percutaneous Endoscopic Approach (ICD-10-PCS; principal; 2022-10-24 09:00)
DX: K85.10 Biliary acute pancreatitis without necrosis or infection (principal); I10 Essential (primary) hypertension; E78.5 Hyperlipidemia, unspecified
CPT/HCPCS: 88304; 47563; J2704; J2550; J2001; J3010 ×2; J1100; A4216; J1170; J2710; J7120; J0694; J2405 ×2